=== PATIENT | female | born 1995 | race Two or more races ===

== ENCOUNTER → 2021-01-19 | Emergency (ER) | payer OTHER ==
[~2021-01-19] VITALS: Ht 149.9 cm; Wt 46.3 kg
[~2021-01-19] MED LIST: ACYCLOVIR15 GM TOP; VALTREX1000 MG PO
== END | disposition home or self-care (01) ==
LOC: ER 16:13
DX: N76.2 Acute vulvitis (principal); R10.2 Pelvic and perineal pain